=== PATIENT | male | born 1995 | race Caucasian/White ===

== ENCOUNTER 2018-12-02 07:26 | Emergency (ER) | payer SELFPAY ==
[~2018-12-02] VITALS: Ht 167.6 cm; Wt 69.4 kg
--- NOTE | 2018-12-02 07:30 | NUR ---
PT B[place]RA FROM [place] STREETS, PRESENTS W/ FACIAL ABRASIONS, WAS FOUND CRAWLING, AGITATED STATING 'I DONT RECALL WHAT HAPPEN" PLACED ON MONITOR. YELLING, REFUSING TO ANSWER QUESTIONS AND WANTS TO LEAVE. AWAITING MD ESCAMILLA.
--- NOTE | 2018-12-02 07:43 | NUR ---
DR HENSLEY AT BEDSIDE FOR EVAL.
[2018-12-02] MEDS ORDERED: LORAZEPAM INJ 2 MG/ML VIAL ONE (07:49)
[2018-12-02] MEDS ORDERED: HALOPERIDOL LACTATE INJ 5 MG/ML VIAL ONE (07:50)
[2018-12-02] MEDS ORDERED: diphenhydrAMINE HCL 50 MG/ML VIAL ONE (07:50)
[2018-12-02] MEDS: diphenhydrAMINE HCL 50 MG/ML VIAL IM ONE (07:58)
--- NOTE | 2018-12-02 07:58 | NUR ---
IV LINE STARTED BLOOD DRAWN AND SENT TO LAB.
[2018-12-02] MEDS: LORAZEPAM INJ 2 MG/ML VIAL IM ONE (07:59)
[2018-12-02] MEDS: HALOPERIDOL LACTATE INJ 5 MG/ML VIAL IM ONE (08:06)
[2018-12-02] MEDS: IV NS 0.9% 1,000 ML BAG IV ONE (08:07)
[2018-12-02 08:12] LABS: BASOPHILS # (AUTO) 0.1 /CMM (0.0-0.2); BASOPHILS % (AUTO) 0.4 % (0.0-2.0); EOSINOPHILS % (AUTO) 0.6 % (0.0-6.0); HEMATOCRIT 51 % (39-51); HEMOGLOBIN 17.4 g/dL (13.5-17.5); LYMPHOCYTES % (AUTO) 15.7 % (20.0-44.0); MEAN CORPUSCULAR HGB CONC 34 g/dl (31.0-36.0); MEAN CORPUSCULAR VOLUME 90 fL (80-96); MONOCYTES # (AUTO) 0.7 /CMM (0.1-1.30); MONOCYTES % (AUTO) 5.6 % (2.0-12.0); NEUTROPHILS # (AUTO) 9.9 /CMM (1.8-8.9); NEUTROPHILS % (AUTO) 77.7 % (43.0-81.0); PLATELET COUNT (AUTO) 360 /CMM (150-450); RED BLOOD CELL COUNT(AUTO) 5.69 MIL/uL (4.5-6.0); WHITE BLOOD COUNT (AUTO) 12.8 K/uL (4.3-11.0)
[2018-12-02 08:15] LABS: CALCIUM, SERUM 10.2 mg/dL (8.5-10.1); CARBON DIOXIDE 25 mmol/L (21-32); CHLORIDE 101 mmol/L (98-107); CREATININE 1.3 mg/dL (0.6-1.3); GLUCOSE 110 mg/dL (74-106); POTASSIUM 3.5 mmol/L (3.5-5.1); SODIUM SERUM 140 mmol/L (136-145); UREA NITROGEN, BLOOD 15 mg/dL (7-18)
[2018-12-02 08:21] LABS: ALANINE AMINOTRANSFERASE 19 U/L (12-78); ALBUMIN 5.1 g/dL (3.4-5.0); ALCOHOL, BLOOD < 3 mg/dL (0-0); ALKALINE PHOSPHATASE 80 U/L (46-116); ASPARTATE AMINOTRANSFERASE 12 U/L (15-37); BILIRUBIN,DIRECT 0.1 mg/dL (0.0-0.2); BILIRUBIN,TOTAL 0.6 mg/dL (0.2-1.0); TOTAL PROTEIN, SERUM 8.7 g/dL (6.4-8.2)
[2018-12-02 08:23] LABS: ACETAMINOPHEN < 10 ug/ml (10-30); SALICYLATE 1.7 mg/dL (2.8-20.0)
--- NOTE | 2018-12-02 08:28 | NUR ---
CALL BACK FROM [facility], CONTACT CELL:[phone]
--- NOTE | 2018-12-02 09:55 | NUR ---
PT TO RADIOLOGY FOR HEAD CT SCAN VIA [facility].
--- NOTE | 2018-12-02 10:44 | NUR ---
[place] PT'S GIRLFRIENDS MOTHER LEFT CONTACT #[phone]
[2018-12-02 11:02] VITALS: BP 122/68
--- NOTE | 2018-12-02 11:09 | NUR ---
REPORT GIVEN TO LITTLE NAVARRETE FOR NINO
--- NOTE | 2018-12-02 13:29 | NUR ---
DPatient discharged to home in stable condition. Written and verbal after care instructions given. Patient verbalizes understanding of instruction.
== END 2018-12-02 13:31 | disposition home or self-care (01) ==
LOC: ER 07:28
DX: S00.81XA Abrasion of other part of head, initial encounter (principal); F19.10 Other psychoactive substance abuse, uncomplicated; F11.10 Opioid abuse, uncomplicated; F15.10 Other stimulant abuse, uncomplicated; F12.10 Cannabis abuse, uncomplicated; R40.4 Transient alteration of awareness; G40.909 Epilepsy, unspecified, not intractable, without status epilepticus; F41.9 Anxiety disorder, unspecified; F17.200 Nicotine dependence, unspecified, uncomplicated; Y08.89XA Assault by other specified means, initial encounter; Y93.89 Activity, other specified; Y92.89 Other specified places as the place of occurrence of the external cause; Y99.8 Other external cause status
CPT/HCPCS: 36415; 70450-TC; 71045-TC; 80048-TC; 80076-TC; 80305; 85025-TC; A6402; A6403; G0480; J1200; J1630; J2060; J7030